=== PATIENT | female | born 1965 | race Two or more races ===

== ENCOUNTER 2021-06-02 08:55 | Emergency (ER) | payer OTHER ==
[2021-06-02] MEDS ORDERED: Pantoprazole 40 MG Tab.CR PO STA (09:51)
[2021-06-02 10:28] LABS: CORONAVIRUS COVID-19 NAA NEGATIVE (NEGATIVE)
== END 2021-06-02 12:30 | disposition home or self-care (01) ==
LOC: JD.ED 08:55
DX: J02.9 Acute pharyngitis, unspecified (principal); I10 Essential (primary) hypertension; K21.9 Gastro-esophageal reflux disease without esophagitis; E03.9 Hypothyroidism, unspecified; Z88.2 Allergy status to sulfonamides; Z79.899 Other long term (current) drug therapy; Z20.822 Contact with and (suspected) exposure to COVID-19
CPT/HCPCS: 0240U; 36415; 71045; 71045-26; 80053; 81003; 83735; 85025; 86140; 87651-QW; 99284; 99284-25; A9270-GY

== ENCOUNTER 2021-06-06 14:10 | Emergency (ER) | payer OTHER | END 2021-06-06 16:09 | disposition home or self-care (01) | LOC: JD.ED 14:10 | DX: J01.90 Acute sinusitis, unspecified (principal); I10 Essential (primary) hypertension; K21.9 Gastro-esophageal reflux disease without esophagitis; E03.9 Hypothyroidism, unspecified; Z88.2 Allergy status to sulfonamides; Z79.899 Other long term (current) drug therapy | CPT/HCPCS: 99282 ==

== ENCOUNTER 2023-10-17 17:26 | Emergency (ER) | payer SELFPAY ==
[2023-10-17] MEDS: Alum Hydrox/Mag Hydrox/Simeth 30 ML, Lidocaine 2% 15 ML PO ONE (19:13)
[2023-10-17 20:02] LABS: BASOPHILS ABSOLUTE AUTO 0.1 K/mm3 (0.0-0.2); BASOPHILS PERCENT AUTO 0.5 % (0.0-1.0); EOSINOPHILS PERCENT AUTO 0.3 % (0.0-6.0); HEMATOCRIT 40.8 % (37.0-47.0); HEMOGLOBIN 13.8 gm/dl (12.0-16.0); IMMATURE GRAN ABSOLUTE AUTO 0.04 K/mm3 (0.00-0.05); IMMATURE GRAN PERCENT AUTO 0.4 % (0.0-0.4); LYMPHOCYTES ABSOLUTE AUTO 3.2 K/mm3 (1.0-4.8); LYMPHOCYTES PERCENT AUTO 29.5 % (24.0-44.0); MEAN CORPUSCULAR HGB CONC 33.8 g/dl (32.0-36.0); MEAN CORPUSCULAR VOLUME 88.7 fl (83.0-99.0); MEAN PLATELET VOLUME 9.2 fl (9.4-12.3); MONOCYTES ABSOLUTE AUTO 0.6 K/mm3 (0.0-0.8); MONOCYTES PERCENT AUTO 5.8 % (0.0-8.0); NEUTROPHILS ABSOLUTE AUTO 6.8 K/mm3 (1.8-7.7); NEUTROPHILS PERCENT AUTO 63.5 % (41.0-71.0); PLATELET COUNT,PLT 246 K/mm3 (150-400)
[2023-10-17 20:27] LABS: ALBUMIN 3.6 g/dl (3.4-5.0); ANION GAP 12.9 (5-15); BILIRUBIN TOTAL 0.3 mg/dL (0.2-1.0); BUN/CREATININE RATIO 16.7 (14-18); CALCIUM 9.1 mg/dL (8.5-10.1); CREATININE 0.9 mg/dL (0.55-1.02); EST CRCL DRUG DOSING (CG) 54.55 mL/min; POTASSIUM,K 2.9 mEq/L (3.5-5.1); PROTEIN TOTAL,TP 7.2 g/dl (6.4-8.2)
[2023-10-17] MEDS: Acetaminophen 325 MG Tab PO ONE (20:36)
[2023-10-17] MEDS: Cefdinir 300 MG Cap PO ONE (21:49)
[2023-10-17] MEDS: Potassium Chloride 20 MEQ Tab.ER PO ONE (21:49)
[2023-10-17] MEDS: Sucralfate Suspension 1 GM/10 ML Cup PO ONE (21:49)
== END 2023-10-17 21:57 | disposition home or self-care (01) ==
LOC: JD.ED 17:26
DX: H66.002 Acute suppurative otitis media without spontaneous rupture of ear drum, left ear (principal); H66.011 Acute suppurative otitis media with spontaneous rupture of ear drum, right ear; I10 Essential (primary) hypertension; K21.9 Gastro-esophageal reflux disease without esophagitis; E03.9 Hypothyroidism, unspecified; Z88.2 Allergy status to sulfonamides; Z79.890 Hormone replacement therapy; Z79.899 Other long term (current) drug therapy
CPT/HCPCS: 36415; 80053; 83690; 85025; 99283; 99284; A9270-GY

== ENCOUNTER 2023-10-18 13:50 | Emergency (ER) | payer SELFPAY ==
[2023-10-18] MEDS: Dexamethasone 4 MG/ML SDV IVPUSH ONE (14:29)
[2023-10-18] MEDS: Sodium Chloride 0.9% 1,000 ML IV STA (14:29)
[2023-10-18] MEDS: diphenhydrAMINE 50 MG/ML SDV IVPUSH ONE (14:30)
[2023-10-18] MEDS: Ketorolac 30 MG/ML SDV IVPUSH ONE (14:30)
[2023-10-18] MEDS: Ondansetron 4 MG/2 ML SDV IVPUSH ONE (14:30)
[2023-10-18] MEDS: Gadobenate Dimeglumine 529 MG/ML 15 ML SDV IVPUSH ONE (15:25)
[2023-10-18] MEDS: Sodium Chloride 0.9% 10 ML Syringe FLUSH SCH (15:26)
[2023-10-18 15:33] LABS: CORONAVIRUS COVID-19 NAA NEGATIVE (NEGATIVE); INFLUENZA A NAA NEGATIVE (NEGATIVE); RESPIRATORY SYNCYTIAL VIR NAA NEGATIVE (NEGATIVE)
[2023-10-18] MEDS: Acetaminophen 325 MG Tab PO ONE (15:49)
[2023-10-18] MEDS: HYDROmorphone 0.5 MG/0.5 ML Syringe IVPUSH ONE (16:38)
== END 2023-10-18 17:00 | disposition home or self-care (01) ==
LOC: JD.ED 13:50
DX: D32.0 Benign neoplasm of cerebral meninges (principal); H92.03 Otalgia, bilateral; I10 Essential (primary) hypertension; K21.9 Gastro-esophageal reflux disease without esophagitis; E03.9 Hypothyroidism, unspecified; Z88.2 Allergy status to sulfonamides; Z79.899 Other long term (current) drug therapy; Z79.890 Hormone replacement therapy
CPT/HCPCS: 0241U; 70450; 70553; 96374; 96375; 99284; A9270; A9577; J1100; J1170; J1200; J1885; J2405; J3490; J7030

== ENCOUNTER 2023-11-27 09:33 | Day surgery (SDC) | payer SELFPAY ==
[~2023-11-27 09:33] MED LIST: Sodium Chloride 0.9% 10 ML Syringe FLUSH PRN; Sodium Chloride 0.9% 10 ML Syringe FLUSH SCH
[2023-11-27] MEDS ORDERED: Propofol 200 MG/20 ML SDV ONE ×3 (09:37→11:30)
[2023-11-27] MEDS ORDERED: Midazolam 1 MG/ML 2 ML SDV ONE (09:37)
[2023-11-27] MEDS: Lactated Ringers 1,000 ML IV SCH (10:00)
[2023-11-27] MEDS ORDERED: Lidocaine 1% 4 ML ONE (11:21)
[2023-11-27] MEDS ORDERED: Lidocaine 1% PF 2 ML SDV ONE ×2 (11:21)
== END 2023-11-27 12:35 | disposition home or self-care (01) ==
LOC: JD.SDS 09:33
PROVIDERS: ATTEND Surgery
DX: Z12.11 Encounter for screening for malignant neoplasm of colon (principal); K21.9 Gastro-esophageal reflux disease without esophagitis; E03.9 Hypothyroidism, unspecified; Z79.890 Hormone replacement therapy; Z79.899 Other long term (current) drug therapy
CPT/HCPCS: 45378; J2250; J2704; J7120; J3490